=== PATIENT | female | born 1975 | race Caucasian/White ===

== ENCOUNTER 2024-03-13 12:38 | Outpatient (RCR) | payer BC, SELFPAY ==
[2024-03-13 12:45] VITALS: BP 155/79
[2024-03-13] MEDS: NSS 1000 IV (13:00)
== END 2024-03-19 23:59 | disposition home or self-care (01) ==
LOC: OID 12:38
PROVIDERS: ATTENDING PHYSICIAN Family Medicine
DX: E86.0 Dehydration (principal)
CPT/HCPCS: 96360; 96361

== ENCOUNTER → 2024-03-16 10:38 | Outpatient (REF) | payer BC, SELFPAY | LOC: RAD 10:38 | PROVIDERS: ATTENDING PHYSICIAN Family Medicine | DX: N17.9 Acute kidney failure, unspecified (principal); R10.9 Unspecified abdominal pain | CPT/HCPCS: 76700; 76775 ==

== ENCOUNTER → 2024-05-03 07:04 | Outpatient (REF) | payer BC, SELFPAY ==
[2024-05-03] VITALS (13 sets, daily range): BP systolic 70–126; BP diastolic 63–91
[2024-05-03 07:48] LABS: Blood Urea Nitrogen 22 mg/dl (7-17); Carbon Dioxide 23 mmol/L (22-30); Chloride 103 mmol/L (98-107); Glucose 134 mg/dl (70-99); Potassium 4.6 mmol/L (3.5-5.1); Sodium 143 mmol/L (135-145); eGFR 45.83
[2024-05-03 07:50] LABS: INR 0.99; PT 13.6 Sec (11.4-14.6)
[2024-05-03 07:53] LABS: % Basophils 0.8 % (0-2); % Eosinophils 4.1 % (0-6); % Immature Granulocytes 0.2 % (0-0.5); % Lymphocytes 27.9 % (20.5-51.1); % Monocytes 5.1 % (1.7-9.3); % Neutrophils 61.9 % (42.2-75.2); Absolute Eosinophils 0.2 10^3/uL (0-0.7); Absolute Lymphocytes 1.5 10^3/uL (1.2-3.4); Absolute Monocytes 0.3 10^3/uL (0.1-0.6); Absolute Neutrophils 3.3 10^3/uL (1.4-6.5); Hematocrit 39.1 % (37.0-47.0); Hemoglobin 13.5 g/dL (12.0-16.0); Mean Corp Hgb Conc. 34.5 g/dL (33.0-37.0); Mean Corpuscular Hgb 32.1 pg (27.0-31.0); Mean Corpuscular Volume 93.1 fL (81.0-99.0); Mean Platelet Volume 9.8 fL (7.4-10.4); Nucleated Red Blood Cells % 0 %; Platelet Count 235 10^3/uL (130-400); Red Cell Dist. Width 12.2 % (11.5-14.5); White Blood Cell Count 5.3 10^3/uL (4.8-10.8)
[2024-05-03 13:09] LABS: Hematocrit 35.8 % (37.0-47.0); Hemoglobin 12.5 g/dL (12.0-16.0)
--- NOTE | 2024-05-03 13:42 | PTCARENOTE ---
pt. to remain in [facility] to recover. No beds available in [facility]. VS as documented. [id number] Rich. Pt. scheduled for discharge at 3pm.
== END ==
LOC: RADI 07:04
PROVIDERS: Radiology Vascular & Interventional Radiology; ATTENDING PHYSICIAN Specialist; FAMILY PHYSICIAN Family Medicine
DX: I12.9 Hypertensive chronic kidney disease with stage 1 through stage 4 chronic kidney disease, or unspecified chronic kidney disease (principal); N18.2 Chronic kidney disease, stage 2 (mild)
CPT/HCPCS: 36415; 50200; 76942; 80048; 85014; 85018; 85025; 85610; 99152; 99153

== ENCOUNTER → 2024-07-10 07:02 | Outpatient (REF) | payer BC, SELFPAY | LOC: HWRCS 07:02 | PROVIDERS: ATTENDING PHYSICIAN Family Medicine | DX: R06.00 Dyspnea, unspecified (principal) | CPT/HCPCS: 93306 ==

== ENCOUNTER → 2024-10-01 11:56 | Outpatient (REF) | payer BC, SELFPAY | LOC: WDC 11:56 | PROVIDERS: ATTENDING PHYSICIAN Family Medicine | DX: Z12.31 Encounter for screening mammogram for malignant neoplasm of breast (principal) | CPT/HCPCS: 77063; 77067 ==

== ENCOUNTER → 2024-11-02 10:30 | Outpatient (REF) | payer BC, SELFPAY | LOC: DHSLP 10:30 | PROVIDERS: ATTENDING PHYSICIAN Family Medicine | DX: G47.33 Obstructive sleep apnea (adult) (pediatric) (principal) | CPT/HCPCS: 95806 ==